=== PATIENT | female | born 1970 | race Caucasian/White ===

== ENCOUNTER 2020-02-06 14:48 | Outpatient (CLI) | payer OTHER, SELFPAY ==
--- NOTE | 2020-02-06 14:55 | US_ITS ---
WS: [id number] ULTRASOUND THYROID TECHNIQUE: Ultrasound of the thyroid. CLINICAL INFORMATION: ENLARGED THYROID/NONTOXIC GOITER COMPARISON: None. FINDINGS: Thyroid: Right and left thyroid lobes are heterogeneous and echotexture. Multinodular goiter with nikolai ateral complex cystic and solid thyroid nodules. Largest solid nodule in the right measures 2.0 x 1.1 x 1.8 cm. Largest nodule in the left with peripheral calcification and cystic and solid contents measuring 1.8 x 1.6 x 1.4 CM. Right thyroid lobe: 4.9 cm x 2.9 cm x 3.4 cm Left thyroid lobe: 5.3 cm x 2.2 cm x 3.5 cm. Isthmus: 0.6 mm. Cervical lymphadenopathy: None. US/US thyroid [id number] IMPRESSION: 1. Heterogeneous thyroid echotexture with multiple complex cystic and solid no dules bilaterally likely due to multinodular goiter. 2. Dominant solid nodule in the right measuring 2.0 x 1.1 x 1.8 cm. Recommend further evaluation with ultrasound-guided FNA. 3. Largest nodule in the left measuring 1.8 x 1.6 x 1.4 cm with peripheral angela cification and cystic and solid internal contents. Recommend 12 month follow-up .
== END 2020-02-06 14:49 | disposition home or self-care (01) ==
LOC: US 14:53
PROVIDERS: PCP Family Medicine; Visit Provider Family Medicine
DX: E04.9 Nontoxic goiter, unspecified (principal); E04.2 Nontoxic multinodular goiter
CPT/HCPCS: 76536

== ENCOUNTER 2022-03-12 11:01 | Outpatient (CLI) | payer OTHER, SELFPAY ==
--- NOTE | 2022-03-12 11:27 | XRR_ITS ---
PROCEDURE INFORMATION: Exam: XR Cervical Spine Exam date and time: 03/12/2022 11:35 AM Age: 52 years old Clinical indication: Patient HX: Neck pain started on February [id number]; Additional info: Neck pain/left arm pain TECHNIQUE: Imaging protocol: Radiologic exam of the cervical spine. Views: 2 or 3 views. COMPARISON: None FINDINGS: Bones/joints: Partial obscuration of the odontoid on the open mouth views. Anatomic alignment. Degenerative change with disc space narrowing at the C5-C6 and C6-C7 levels. Soft tissues: Obscuration of the C7 vertebral body by overlying soft tissues on the lateral view. Vasculature: Vascular calcification. XR/XR cervical spine 3V* [id number] IMPRESSION: Degenerative change with disc space narrowing at the C5-C6 and C6-C7 levels.
== END 2022-03-12 11:02 | disposition home or self-care (01) ==
PROVIDERS: PCP Family Medicine; Visit Provider Family Medicine
DX: M79.602 Pain in left arm (principal); M54.2 Cervicalgia
CPT/HCPCS: 72040

== ENCOUNTER 2023-07-23 09:35 | Outpatient (CLI) | payer OTHER, SELFPAY ==
[2023-07-23 09:55] LABS: Add Urine Microscopic? NO; Charge for UA Resulting for Rev
[2023-07-23 09:58] LABS: Bilirubin Urine Neg (Negative); Blood Urine Neg (Negative); Glucose Urine UA Norm (Normal); Ketones Urine 1+ (Negative); Leukocyte Esterase Urine Negative (Negative); Nitrate Urine Negative (Negative); Protein Urine Neg (Negative); Urine Appearance Clear (CLEAR); Urine Color Yellow (Yellow); Urobilinogen Urine Norm (Negative); pH Urine 5 (5-7)
== END 2023-07-23 09:36 | disposition home or self-care (01) ==
LOC: LAB 09:40
PROVIDERS: PCP Family Medicine; Visit Provider Family Medicine
DX: R30.0 Dysuria (principal)
CPT/HCPCS: 81003

== ENCOUNTER → 2024-12-31 14:31 | Outpatient (BNVA) | payer OTHER, SELFPAY | PROVIDERS: PCP Family Medicine; Visit Provider Registered Nurse Neonatal Intensive Care | DX: N39.0 Urinary tract infection, site not specified (principal) | CPT/HCPCS: 81000 ==